=== PATIENT | female | born 1950 | race Two or more races ===

== ENCOUNTER 2017-03-12 05:10 | Emergency (ER) | payer MEDICAID ==
--- NOTE | 2017-03-12 05:44 | ED Physician Chart ---
Chief Complaint/HPI - Patient Information Date Seen:: 03/12/17 Time Seen:: 05:25 Chief Complaint:: Pt is here because of abnormal radiological findings. History of Present Illness:: Brought in by ambulance from nursing facility because of left elbow X-ray today shows malalignment or malposition of an old fracture of the distal humerus. Pt appears to be comfortable and move her LUE comfortably. Pt has h/o cerebral palsy. H & P are limited because pt is unable to cooperate. Info is primarily from review of limited transfer documents. Allergies:: Allergies Allergy/AdvReac Type Severity Reaction Status Date / Time No Known Allergies Allergy Verified 03/12/17 05:24 Vitals:: see Nurse Note. Historian:: Medical Records (from transferring facility.) Family MD/PCP:: Dr. Cruz LMP:: postmenopausal. Review:: Nurse's Note Reviewed, Transfer documents Reviewed Review of Systems - Review of Systems General/Constitutional: Other (Pt does not cooperate for ROS.) Past Medical History - Past Medical History Past Medical History: HTN, Seizures, Dementia, Other (cerebral palsy. Chronic hyponatremia. Chronic anemia.) Family History: Other (Pt does not cooperate to provide info for FHx.) Social History: Care Facility, Other (Pt does not cooperate to provide info on SHx.) Surgical History: other (Pt does not cooperate to provide info on Surgical Hx.) Psychiatricy History: Dementia Medication: Reviewed Family Medical History - Family Member Mother History Unknown: Yes Physical Exam - Physical Examination General/Constitutional: Awake, Well-developed, well-nourished (female), Alert, No distress, Non-toxic appearing Other Gen/Cons comments:: Breathes comfortably, responds to voice and tactile stimuli but essentially nonverbal. Head: Atraumatic Eyes: Lids, conjuctiva normal, PERRL, EOMI Skin: Well hydrated, No lymphadenopathy ENMT: External ears, nose nl, Nasal exam nl, Oropharynx nl Neck: Nontender, Full ROM w/o pain, No JVD, No nuchal rigidity, No stridor Respiratory: Nl effort/Exclusion, Clear to Auscultation, No Wheeze/Rhonchi/Rales Cardio Vascular: RRR, No murmur, gallop, rubs GI: No tenderness/rebounding/guarding, No organomegaly, Normal BS's, Nondistended Other GI comments:: Abdomen is soft. Other Extremities comments:: LUE: L upper arm show deformity in distal aspect. There is trace ecchymosis noticed. No open wound or swelling. No erythema. Good ROM of all joints. No detectable motor/sensory/vascular deficit. Good distal pulse. Other Neuro/Psych comments:: Alert and responsive to voice and tactile stimuli. Spontaneous movements noticed in all 4 extremities. Pt does not cooperate for full neurological exam. ED Septic Shock - . Is Septic Shock (SBP<90, OR Lactate>4 mmol\L) present?: No Reassessment (Disposition) - Reassessment Reassessment:: 0640 Pt remains stable. Case has been signed off to Dr. Eugene for continued care. - Diagnosis Diagnosis:: Old healed left distal humeral fracture with malalignment/malposition. H/O cerebral palsy with dementia and epilepsy HTN. h/o Chronic hyponatremia. h/o Chronic anemia, on Fe supplementation.
[2017-03-12 06:08] LABS: % BASOPHILS 0.3 % (0.0-2.0); % EOSINOPHILS 6.6 % (0.0-5.0); % LYMPHOCYTES 38.6 % (20.0-50.0); % MONOCYTES 9.6 % (2.0-10.0); % NEUTROPHILS 44.9 % (40.0-80.0); HEMATOCRIT 32.6 % (35.0-45.0); HEMOGLOBIN 11.1 gm/dL (11.7-16.1); MEAN CELL VOLUME 90.5 fl (81-100); MEAN CORPUSCULAR HGB CONC 34.2 pg (28.0-36.0); MEAN PLATELET VOLUME 7.3 fl; NEUTROPHILE ABSOLUTE 2.9 Th/cmm (1.8-8.0); PLATELET COUNT 359 Th/cmm (150-400); RED CELL DISTRIBUTION WIDTH 13.6 % (11.5-20.0); WHITE BLOOD COUNT 6.3 Th/cmm (4.8-10.8)
[2017-03-12 06:21] LABS: INR 0.98 (0.5-1.4); PROTHROMBIN TIME (TEST) 10.2 SECONDS (9.5-11.5)
[2017-03-12 06:24] LABS: ALB/GLOB RATIO 1.1 (1.0-1.8); ALKALINE PHOSPHATASE 83 U/L (34-104); ANION GAP 4.8 (7.0-16.0); BILIRUBIN,TOTAL 0.3 mg/dL (0.3-1.0); BUN - UREA NITROGEN 22 mg/dL (7-25); BUN/CREATININE RATIO 36.7; CALCIUM SERUM 9.4 mg/dL (8.6-10.3); CARBON DIOXIDE 28.4 mEq/L (21.0-31.0); CHLORIDE 103 mEq/L (98-107); CREATININE - SERUM 0.6 mg/dL (0.6-1.2); GLUCOSE 84 mg/dL (70-105); POTASSIUM SERUM 4.2 mEq/L (3.5-5.1); SGOT 19 U/L (13-39); SGPT/ALT 13 U/L (7-52); SODIUM SERUM 132 mEq/L (136-145)
--- NOTE | 2017-03-12 10:03 | Diagnostic Imaging Report ---
Exam: Left humerus single view HISTORY Deformity of the left upper arm Findings: Single portable examination of the left upper arm is 0745 hours was reviewed. The study demonstrates a displaced fracture of the distal shaft of the left humerus with significant separation and angulation of fragments. The separation approximately 3 cm angulation approximately 40 degrees. The acuity is unknown. Diffuse degenerative osteopenia is noted throughout. IMPRESSION: 1. Diffuse osteopenia and degenerative changes. Fracture of the left distal humerus with separation of the fragments and severe angulation. Acuity is unknown.
== END 2017-03-12 09:10 ==
LOC: ER 05:10
DX: S40.012A Contusion of left shoulder, initial encounter (principal); I10 Essential (primary) hypertension; X58.XXXA Exposure to other specified factors, initial encounter; Y93.89 Activity, other specified; Y92.89 Other specified places as the place of occurrence of the external cause; Y99.8 Other external cause status
CPT/HCPCS: 36415-UA; 73060-TC-LT; 80053-TC; 80156-TC; 85025-TC; 85610-TC